=== PATIENT | male | born 1960 | race Caucasian/White ===

== ENCOUNTER 2023-09-06 09:49 | Day surgery (SDC) | payer SELFPAY ==
[2023-09-06] MEDS ORDERED: fentaNYL 50 MCG/ML SDV ONE (10:00)
[2023-09-06] MEDS ORDERED: Midazolam 1 MG/ML 2 ML SDV ONE (10:00)
[2023-09-06] MEDS ORDERED: Propofol 200 MG/20 ML SDV ONE (10:00)
[2023-09-06] MEDS ORDERED: Lactated Ringers 1,000 ML IV SCH (10:30)
== END 2023-09-06 14:40 | disposition home or self-care (01) ==
LOC: JP.SDS 09:49
PROVIDERS: ATTEND Student in an Organized Health Care Education/Training Program
DX: K57.30 Diverticulosis of large intestine without perforation or abscess without bleeding (principal); K21.9 Gastro-esophageal reflux disease without esophagitis
CPT/HCPCS: 45378; J2250; J2704; J3010; J7120